=== PATIENT | female | born 1955 | race Caucasian/White ===

== ENCOUNTER 2016-08-06 08:28 | Day surgery (SDC) | payer BC ==
[2016-07-31 13:38] VITALS: BMI 25.0
[2016-08-06] MEDS ORDERED: PROPOFOL 20 ML ONE ×2 (08:31)
[2016-08-06 08:58] VITALS: TEMP 98.8
[2016-08-06 10:56] VITALS: BP 130/61; PULSE 61
--- NOTE | 2016-08-08 11:20 | PATH ---
Surgical Pathology Report Patient Name: ARI IVEY [facility]. Rec. #: [id number] /Age/Gender: 1955 (Age: 61) / F Account: [id number] Location: [facility]-ENDOSCOPY Taken: 08/06/2016 Received: 08/06/2016 Reported: 08/07/2016 Physicians: Jorje Jane M.D. Specimen(s) Received A: BX DUODENUM B: BX ANTRUM Clinical History GERD, rule out colon cancer Rule out celiac disease, gastritis Final Diagnosis A. DUODENUM, BIOPSY: DUODENAL MUCOSA WITH NO PATHOLOGIC FINDINGS. Note: Features suggestive of celiac disease are not identified in this biopsy. B. ANTRUM, BIOPSY: MILD CHRONIC GASTRITIS. IMMUNOSTAIN IS NEGATIVE FOR H. PYLORI ORGANISMS. Electronically Signed Constance Wong M.D. Gross Description A. Received in formalin, labeled "duodenum" are 3 rosas, irregular portions of soft tissue ranging from 0.1-0.4 cm. in greatest dimension. The specimens are submitted in toto in one cassette. B. Received in formalin, labeled "antrum" are 3 rosas, irregular portions of soft tissue ranging from 0.2-0.4 cm. in greatest dimension. The specimens are submitted in toto in one cassette. 08/06/201608/06/2016
== END 2016-08-06 11:05 | disposition home or self-care (01) ==
LOC: FASU-ENDO 08:28
PROVIDERS: ATTEND Internal Medicine Gastroenterology
PROC: 0DB98ZX Excision of Duodenum, Via Natural or Artificial Opening Endoscopic, Diagnostic (ICD-10-PCS; principal; 2016-08-06 09:55)
PROC: 0DB68ZX Excision of Stomach, Via Natural or Artificial Opening Endoscopic, Diagnostic (ICD-10-PCS; 2016-08-06 09:55)
DX: K29.50 Unspecified chronic gastritis without bleeding (principal)
CPT/HCPCS: 88305-TC; 88342-TC